=== PATIENT | male | born 1960 | race Caucasian/White ===

== ENCOUNTER 2018-08-09 14:51 | Emergency (ER) | payer SELFPAY ==
[~2018-08-09] VITALS: Ht 180.3 cm; Wt 84.8 kg
[2018-08-09 14:54] VITALS: BP 140/86
--- NOTE | 2018-08-09 16:52 | NUR ---
CALLED PT IN LOBBY, NO RESPONSE.
--- NOTE | 2018-08-09 17:00 | NUR ---
CALLED PT NAME IN LOBBY, NO ANSWER
--- NOTE | 2018-08-09 17:17 | NUR ---
CALLED PT IN LOBBY, NO ANSWER.
== END 2018-08-09 17:12 | disposition left against medical advice (07) ==
LOC: MED 14:51
DX: M54.9 Dorsalgia, unspecified (principal); R11.2 Nausea with vomiting, unspecified; R19.7 Diarrhea, unspecified; R10.32 Left lower quadrant pain; Z53.21 Procedure and treatment not carried out due to patient leaving prior to being seen by health care provider
CPT/HCPCS: 81002